=== PATIENT | male | born 1970 | race Asian ===

== ENCOUNTER 2025-05-25 09:03 | Observation (INO) | payer OTHER, SELFPAY ==
[2025-05-25] VITALS (13 sets, daily range): BP systolic 139–178; BP diastolic 77–113; PULSE 60–94; RESP 14–22; TEMP 35.9–36.7; O2SAT 95–100; BMI 28.0
--- NOTE | ~2025-05-25 | CT_ITS ---
EXAM: CTA brain carotid - 05/25/2025 11:40 CDT History: 54 years old Male with dizziness TECHNIQUE: CTA of the head and neck with intravenous contrast was performed. 3-D reconstructed image s of cerebral artery circulation were generated on a [employer] workstation. Automatic exposure contro l was used for this study. CONTRAST: 100 cc of Omnipaque 350 was used for this study COMPARISON: None available. FINDINGS: Normal branching pattern of the thoracic aorta. Great vessels of the neck are patent. RIGHT ANTERIOR CIRCULATION: Innominate and right common carotid artery is normal in caliber. No significant stenosis at the carotid bifurcation by NASCET criteria. Cervical segment of the internal carotid artery is normal in caliber. Cavernous and supraclinoid segm ents of the internal carotid artery patent. M1 segment and middle cerebral artery bifurcation are unremarkable. A1 segment, anterior communicating artery complex and A2 segment are within normal limits. LEFT ANTERIOR CIRCULATION: Left common carotid artery is normal in caliber. No significant stenosis at the carotid bifurcation by NASCET criteria. Cervical segment of the internal carotid artery is normal in caliber. Cavernous and supraclinoid segm ents of the internal carotid artery patent. M1 segment and middle cerebral artery bifurcation are unremarkable. A1 segment, anterior communicating artery complex and A2 segment are within normal limits. POSTERIOR CIRCULATION: Vertebral arteries are codominant and patent throughout the neck. Intradural vertebral arteries are normal in caliber and terminate as the basilar artery. Basilar artery is normal in caliber. Right P1 segment is hypoplastic, with persistent origin of the right posterior cerebral artery from right posterior communicating artery. Left P1 and P2 segments are within normal limits. OTHER: Multilevel degenerative changes of the visualized cervical spine. Visualized lungs are clear. IMPRESSION: Unremarkable CTA of the head and neck. No evidence of cerebral artery aneurysm, stenosis or mass. *REFERENCES: NASCET CRITERIA: The degree of internal carotid artery (ICA) stenosis is based on NASCET criteria. No rmal is no stenosis. Mild is less than 50% stenosis. Moderate is 50-69% stenosis. Severe is 70-99% st enosis. Total occlusion is no detectable patent lumen. Reviewed, dictated and finalized at location A. IMPRESSION: Unremarkable CTA of the head and neck. No evidence of cerebral artery aneurysm , stenosis or mass. *REFERENCES: NASCET CRITERIA: The degree of internal carotid artery (ICA) stenosis is based on NASCET criteria. Normal is no stenosis. Mild is less than 50% stenosis. Mode rate is 50-69% stenosis. Severe is 70-99% stenosis. Total occlusion is no detec table patent lumen.
--- NOTE | ~2025-05-25 | MR_ITS ---
EXAMINATION: MR brain/brain stem wo/w con DATE: 05/26/2025 11:20 INDICATION: Dizziness TECHNIQUE: Magnetic resonance imaging (MRI) of the brain and brainstem was performed without and with 16 mL Multihance Intravenous contrast. Sequences included sagittal and axial T1-weighted SE, axial d iffusion-weighted FS SE, axial 3D SWAN, axial T2-weighted FLAIR, and axial T2-weighted FSE. Postcontr ast axial and coronal T1-weighted SE was obtained. Apparent diffusion coefficient (ADC) maps were cre ated. COMPARISON: Head CT and CT angiogram dated 05/25/2025 FINDINGS: There are no areas of restricted diffusion to suggest acute infarction. No intracranial hemorrhage or abnormal intracranial mass lesion. A couple small foci of nonspecific increased T2-weighted signal i ntensity in the right frontal lobe white matter and right basal ganglia which is within normal limits for age and most typically sequela of chronic small vessel ischemic disease. There are no intraparen chymal signal abnormalities seen on the other pulse sequences. The ventricles are symmetric and carolina l in size. There are no abnormal extra-axial fluid collections. Flow voids are seen in the cerebral a rteries on the T2-weighted sequences consistent with their expected patency. There are bilateral high riding jugular bulbs with the cephalad margin on prior CT extending cephalad to the round windows to the level of the midpoint of the cochlea and windows on both the left and right. Visualized orbits a nd soft tissues are unremarkable. There are no areas of abnormal enhancement on the post contrast ratna ges. IMPRESSION: 1. Normal for age brain. No acute intracranial process or abnormally enhancing brain lesions. 2. Bilateral high riding jugular bulbs which can predispose towards vertigo and dizziness. Reviewed, dictated and finalized at location A.
--- NOTE | ~2025-05-25 | CT_ITS ---
EXAM: CT brain wo con - 05/25/2025 10:02 CDT History: 54 years old Male with dizziness COMPARISON: None available. PROCEDURE: CT of the head without contrast. Axial, sagittal and coronal reformatted planes were lelo luated. Automatic exposure control was used for this study. FINDINGS: BRAIN PARENCHYMA: No acute hemorrhage. No mass effect or herniation. Maldonado-white matter differentiatio n is maintained. Normal appearance of cortex. VENTRICLES/ EXTRA-AXIAL SPACES: No hydrocephalus or extra-axial fluid collection. EXTRACRANIAL STRUCTURES: No calvarial fracture. IMPRESSION: No evidence for acute intracranial hemorrhage or calvarial fracture. Reviewed, dictated and finalized at location A.
--- OUTSIDE RECORDS SUMMARY | 2025-05-25 09:35 | XMS_ITS | Clinical Summary ---
Author Organization [facility] Address [address] [place] [address] Care Team Providers Care Practice Performance Manager Name Role Phone Kishore Whitley MD Primary Care Prov ider Allergies No known active allergies Medications allopurinoL (ZYLOPRIM) 300 mg tablet TK 1 T PO D 01/15/2020 Active metFORMIN (GLUCOPHAGE) 500 mg tablet Take 1 tablet (500 mg total) by mouth 2 (two) times a day with meals 180 tablet 3 02/25/2024 Active fenofibrate (TRIGLIDE) 160 mg tabletIndication s:Type 2 diabetes mellitus with hyperglycemia, without long-term current use of insulin (HCC) Take 1 tablet by mouth once daily 90 tablet 11/02/2024 Active pravastatin (PRAVACHOL) 80 mg tabletIndication s:Type 2 diabetes mellitus with hyperglycemia, without long-term current use of insulin (HCC) Take 1 tablet by mouth once daily 90 tablet 11/02/2024 Active Active Problems Problem Noted Date Diagnosed Date Mixed hyperlipidemia due to type 2 diabetes nikkie itus 02/25/2024 Assessment & Plan (02/25/2024 3:01 PM CDT): Chronic, probably uncontrolled off of the medication for tomorrow Importance of low fat low carb diet and exercise to lower triglycerides was discussed Restart fenofibrate and pravastatin Update TFTs in 2 months Type 2 diabetes mellitus wit h hyperglycemia, without long-term current use of insulin 08/27/2023 Assessment & Plan (02/25/2024 3:00 PM CDT): Chronic, stable Continue metformin 500 mg twice a day Patient advised to have an eye exam done Assessment & Plan (08/27/2023 4:29 PM CDT): Diagnosed in February/2023 with fasting hyperglycemia and A1c of 7.1% Responding to Metformin A1c 6.7% on 08/27/23 Plan: Continue diet plan Continue Metformin Mixed hyperlipidemia 08/16/2017 Assessment & Plan (08/27/2023 4:28 PM CDT): under control with diet and medication Labs on 02/18/23 Cholesterol 185, triglycerides 209, LDL 111, HDL 37 Normal liver panel. Plan: Patient to watch diet- avoid fried foods, cut down on red meat. Increase Exercise. He will see a new Graphic Design Specialist in [place] Immunizations Immunization Administration Dates Next Due Flucelvax Influenza Quad 08/26/2017 Influenza, Quadrivalent, Josie l Culture-based MDCK, Antibiotic Free, Intramuscular 10/13/2018 Influenza, Quadrivalent, Split, Intramuscular Influenza, Quadrivalent, Spl it, Preservative Free, Intramuscular 10/09/2019 Medical History Medical History Date Comments High cholesterol Diabetes (HCC) Family History Medical History Relation Name Comments Diabetes Father Relation Name Status Comments Father Social History Tobacco Use Types Packs/Day Years Used Date Smoking Tobacco: Never Smokeless Tobacco: Never Tobacco Cessation:Counseling Given: Not Answered Personal Safety Answer Date Recorded Getting School Help Needed Not on file 10/28 Sex and Gender Information Value Date Recorded Sex Assigned at Not on file 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 Gender Identity Not on file Sexual Orientation Not on file Obstetrics History Last Filed Vital Signs Vital Sign Reading Time Taken Comments Blood Pressure 130/70 02/25/2024 2:21 PM CDT Pulse 94 02/25/2024 2:21 PM CDT Temperature 36.8 C (98.3 F) 06/22/2015 1:38 PM CDT Respiratory Rate 18 02/25/2024 2:21 PM CDT Oxygen Saturation 98% 06/22/2015 1:38 PM CDT Inhaled Oxygen Concentration - - Weight 82.6 kg (182 lb 1.6 oz) 02/25/2024 2:21 P M CDT Height 167.6 cm (5' 6) 02/25/2024 2:21 PM CDT Body Mass Index 29.39 02/25/2024 2:21 PM CDT Plan of Treatment Health Maintenance Due Date Last Done Comments Colon Cancer Screening-Colonoscopy 1968 Hepatitis C Screening 1968 Prostate Cancer Screening-PSA 1968 Dilated Eye Exam 1968 Foot Exam 1968 DTaP/Tdap/Td Vaccine (1 - Tdap) 1979 Hepatitis B Screening 1986 Regular Well Visit/Exam 18-64 1986 Pneumococcal vaccine <65 (1 of 2 - PCV) 1987 Depression Screening 08/16/2018 08/16/2017 Zoster Vaccine (1 of 2) 2018 Hemoglobin A1C 08/26/2024 02/25/2024, 08/18, 03/04/2023 Albumin Creatinine Ratio, Urine 04/27/2025 Lipid Panel 04/27/2025 04/27/2024, 04/0 01/2023, 01/26/2022, Additional history exists eGFR 04/27/2025 04/27/2024, 04/0 01/2023, 01/26/2021, Additional history exists Influenza Vaccine (Season Ended) 2025 10/09/2019, 10/09/2019, 10/13/2018, Additional history exists Procedures Procedure Name Priority Date/Time Associated Diagnosis Comments COMPREHENSIVE METABOLIC PANEL Routine 04/27/2024 7:40 AM CDT Type 2 diabetes mellitus with hyperglycemia, without long-term current use of insulin (HCC) LIPID PANEL Routine 04/27/2024 7:40 AM CDT Mixed hyperlipidemia due to type 2 diabetes mellitus (HCC) ALBUMIN CREATININE RATIO, URINE Routine 04/27/2024 7:40 AM CDT Type 2 diabetes mellitus with hyperglycemia, without long-term current use of insulin (HCC) POCT HEMOGLOBIN A1C Routine 02/25/2024 2 :21 PM CDT Type 2 diabetes mellitus with hyperglycemia, without long-term current use of insulin (HCC) from Last 3 Months or Most Recently Relevant to Health Maintenance Results * (ABNORMAL) Albumin Creatinine Ratio, Urine (04/27/2024 7:40 AM CDT) Creatinine ur 33.8 Not Estab. mg/dL [facility] - 01 Microalbumin, ur 27.9 Not Estab. ug/mL [facility] - 01 Microalbumin/cre at ratio 83(H) 0 - 29 mg/g creat [facility] - 01 Comment: Normal: 0 - 29 Moderately increased: 30 - 300 Severely increased: >300 Urine 04/27/2024 7:40 AM CDT 04/27/2024 Narrative [facility] - 04/28/2024 9:13 AM CDT Performed at: [address] [id number] Professor Of Art: Salvador Michelle PhD, Phone: [phone] us Lani Bee MD LAB URINE ORDERABLES [facility] - 01 * (ABNORMAL) Lipid panel (04/27/2024 7:40 AM CDT) Cholesterol 204(H) 100 - 199 mg/dL [facility] - 01 Triglycerides 166(H) 0 - 149 mg/dL [facility] - 01 HDL Cholesterol 40 >39 mg/dL [facility] - 01 VLDL 30 5 - 40 mg/dL [facility] - 01 LDL, calculated 134(H) 0 - 99 mg/dL [facility] - 01 LDL Calc Comment: CANCELED [facility] - 01 Comment: Test not performed Result canceled by the ancillary. Blood 04/27/2024 7:40 AM CDT 04/27/2024 Narrative [facility] - 04/28/2024 9:13 AM CDT Performed at: [address] [id number] Professor Of Art: Salvador Michelle PhD, Phone: [phone] Lani Bee MD LAB BLOOD ORDERABLES Edited Resu lt - Final [facility] - 01 * (ABNORMAL) Comprehensive metabolic panel (04/27/2024 7:40 AM CDT) [facility] Glucose 118(H) 70 - 99 mg/dL [facility] - 01 BUN 18 6 - 24 mg/dL [facility] - 01 Creatinine, Serum 0.81 0.76 - 1.27 mg/dL [facility] - 01 eGFR 104 >59 mL/min/1.7 3 [facility] - 01 BUN/creat ratio 22(H) 9 - 20 [facility] - 01 Sodium 137 134 - 144 mmol/L [facility] - 01 Potassium, sr 4.6 3.5 - 5.2 mmol/L [facility] - 01 Chloride 101 96 - 106 mmol/L [facility] - 01 CO2 22 20 - 29 mmol/L [facility] - 01 Calcium 9.9 8.7 - 10.2 mg/dL [facility] - 01 Protein, sr 7.7 6.0 - 8.5 g/dL [facility] - 01 Albumin 4.6 3.8 - 4.9 g/dL [facility] - 01 Globulin, Total 3.1 1.5 - 4.5 g/dL [facility] - 01 A/G Ratio 1.5 [facility] - 01 Bilirubin, Total 0.3 0.0 - 1.2 mg/dL [facility] - 01 Alk phos 66 44 - 121 IU/L [facility] - 01 AST 19 0 - 40 IU/L [facility] - 01 ALT 22 0 - 44 IU/L [facility] - 01 Blood 04/27/2024 7:40 AM CDT 04/27/2024 Narrative [facility] - 04/28/2024 9:13 AM CDT Performed at: [address] [place] [id number] Professor Of Art: Salvador Michelle PhD, Phone: [phone] us Lani Bee MD LAB BLOOD ORDERABLES Final Resul t [facility] - 01 * (ABNORMAL) POCT hemoglobin A1c (02/25/2024 2:21 PM CDT) Hemoglobin A1C, POC 6.7 % Blood spot 02/25/2024 2:21 PM CDT Lani Bee MD POINT OF CARE TEST ORDERABLES Fi nal Result from Last 3 Months or Most Recently Relevant to Health Maintenance Insurance [facility] Care Teams Practice Performance Manager Relationship Specialty Start Date End Date Kishore Whitley MD [address] [place] [address] PCP - General Family Medicine 02/11/18
[2025-05-25 09:36] LABS: Hematocrit 46.0 % (42.0-52.0); Hemoglobin 15.0 g/dL (14.0-18.0); Immature Granulocyte Percent A 1.4 % (0-0.5); Lymphocytes Absolute Auto 3.34 K/mm3 (0.9-3.2); Mean Corpuscular HGB Conc 32.6 g/dl (32-36); Mean Corpuscular Hemoglobin 26.0 pg (26-34); Mean Corpuscular Volume 79.9 fl (80-100); Nucleated Red Blood Cells Absolute Auto 0.000 K/mm3 (0.0-0.012); Nucleated Red Blood Cells Perc 0.0 % (0.0-0.2); Platelet Count Result 242 k/mm3 (150-375); Red Blood Count 5.76 M/mm3 (4.6-6.20); White Blood Count 9.6 K/mm3 (4.5-10.0)
--- OUTSIDE RECORDS SUMMARY | 2025-05-25 09:36 | XMS_ITS | Referral Summary ---
Author Organization [facility] Medical Office Building B Address [address] [place] [address] Care Team Providers Care Relay Associate Name Role Phone Kishore Whitley MD Primary [...] Increase Exercise. He will see a new Gamma Operator in [place] Immunizations Immunization Administration Dates Next Due Flucelvax Influenza Quad 08/26/2017 Influenza, Quadrivalent, Josie l Culture-based MDCK, Antibiotic Free, Intramuscular 10/13/2018 Influenza, Quadrivalent, Split, Intramuscular Influenza, Quadrivalent, Spl it, Preservative Free, Intramuscular 10/09/2019 Social History Tobacco Use Types Packs/Day Years Used Date Smoking Tobacco: Never Smokeless Tobacco: Never Tobacco Cessation:Counseling Given: Not Answered Personal Safety Answer Date Recorded Getting School Help Needed Not on file 10/28 Sex and Gender Information Value Date Recorded Sex Assigned at Not on file 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[employer] Gender Identity Not on file Sexual Orientation Not on file Last Filed Vital Signs Vital Sign Reading [...] 02/25/2024 2:21 PM CDT Plan of Treatment Not on file Procedures Procedure Name Priority Date/Time Associated Diagnosis [...] - 04/28/2024 9:13 AM CDT Performed at: 01 - [address] [id number] [address] Judge: Salvador Michelle PhD, Phone: [phone] us Lani Bee MD LAB URINE ORDERABLES Final Resul t [facility] - 01 * (ABNORMAL) Lipid panel [...] - 04/28/2024 9:13 AM CDT Performed at: 01 - [address] [id number] [address] Judge: Salvador Michelle PhD, Phone: [phone] us Lani Bee MD LAB BLOOD ORDERABLES Edited Resu lt - Final [facility] - 01 * (ABNORMAL) Comprehensive metabolic panel (04/27/2024 7:40 AM CDT) Glucose 118(H) 70 - 99 mg/dL [facility] [...] - 04/28/2024 9:13 AM CDT Performed at: [facility] [id number] [address] Judge: Salvador Michelle PhD, Phone: [phone] us Lani Bee MD LAB BLOOD ORDERABLES Final Resul t [facility] - 01 * (ABNORMAL) POCT hemoglobin A1c (02/25/2024 2:21 PM CDT) Hemoglobin A1C, POC 6.7 % Blood spot 02/25/2024 2:21 PM CDT us Lani Bee MD POINT OF CARE TEST ORDERABLES Fi nal Result from Last 3 Months or Most Recently Relevant to Health Maintenance Insurance [facility] CHOICE PLUS [facility] HMO/PPO Address: [address] [address] [place] [address] [facility] Address: [address] [address] [place] [phone] Care Teams Relay Associate Relationship Specialty Start Date End Date Kishore Whitley MD [address] [place] [address] PCP - General Family Medicine 02/11/18
--- NOTE | 2025-05-25 09:42 | ED.NAVMDI ---
HPI - Nausea/Vomiting/Diarrhea General Chief complaint: Nausea/Vomiting/Diarrhea <Leny Starks PA-C - Last Filed: 05/27/25 17:48> Stated complaint: n/v <KIRILL Montenegro Last Filed: 05/27/25 17:48> Time Seen by Provider: 05/25/25 09:10 <Leny Starks PA-C - Last Filed: 05/27/25 17:48> Source: patient <Leny Rivera KIRILL Starks Last Filed: 05/27/25 17:48> Mode of arrival: EMS <KIRILL Montenegro Last Filed: 05/27/25 17:48> Limitations: no limitations <KIRILL Montenegro Last Filed: 05/27/25 17:48> History of Present Illness HPI Narrative: This is a 54 year old male that presents to the ER for nausea and vomiting. Reports history of DM. Reports an hour ago he had an episode of dizziness, nausea, vomiting. Worse with position changes. No previous history of vertigo. Denies fever, abdominal pain. <Leny Starks PA-C - Last Filed: 05/27/25 17:48> Related Data Allergies/Adverse reactions: Allergies Allergy/AdvReac Type Severity Reaction Status Date / Time No Known Allergies Allergy Verified 05/25/25 09:07 <Leny Starks PA-C - Last Filed: 05/27/25 17:48> Review of Systems Review of Systems: All systems reviewed & are unremarkable except as noted in HPI and below <KIRILL Montenegro Last Filed: 05/27/25 17:48> [facility] Past Medical History Medical History: Medical History Hypertension Gout Hyperlipidemia <KIRILL Montenegro Last Filed: 05/27/25 17:48> Social History Social History: Social History Smoking status: Never smoker Alcohol intake: current Drinks per week: 2 Substance use: never Substance use type: does not use Do You Feel Safe in your Home?: Yes Lack of Transportation: No Lack of Food: Never True Current Housing: I Have Housing Concerned About Future Housing: No Difficulty Paying Gas/Electric Bills: No Difficulty Paying for Meds: No Currently Unemployed: No Education: High School Diploma/GED Difficulty w/ Childcare or Family Care: No Living arrangements: with family Occupation/Education: occupation Gender identity (if verbalized by the patient): Male Spiritual care concerns: No <Leny Starks PA-C - Last Filed: 05/27/25 17:48> Exam Narrative: GENERAL: Well-appearing, well-nourished, and in no acute distress. HEAD: Normocephalic, atraumatic. EYES: PERRLA and EOMI. ENT: Nares clear, no rhinorrhea or epistaxis. Mucous membranes moist. Oropharynx without tonsillar hypertrophy exudate or other lesions. Bilateral TMs pearly rosenthal non-bulging NECK: Supple. No adenopathy or masses. CHEST: Clear to auscultation. No respiratory distress. No wheezes rales or rhonchi HEART: Regular rate and rhythm. No murmur heard. Normal peripheral pulses. ABDOMEN: Soft, nontender, nondistended, normal active bowel sounds. EXTREMITIES: Normal range of motion. No edema. SKIN: Warm, dry, no rash. NEURO: No focal deficits. Alert and oriented x3. CN II-XII grossly intact PSYCH: Normal mood and affect <Leny Starks PA-C - Last Filed: 05/27/25 17:48> Course Course Emergency Course: Patient updated on his workup. Continue dizziness after meclizine, Zofran, Valium, 2 L of IV fluids. Will consult for admission <Leny Starks PA-C - Last Filed: 05/27/25 17:48> LEGAL NURSE CONSULTANT/PA Physician Supervision For this patient encounter, I reviewed the LEGAL NURSE CONSULTANT or PA documentation, treatment plan, and medical decision making; and I had [id number] time with this patient. <Adams Rosa MD - Last Filed: 06/04/25 12:56> Consultations Consultation #1: Spoke with hospitalist about patient and workup who accepts admission <Leny Starks PA-C - Last Filed: 05/27/25 17:48> Vital Signs Vital signs: Vital Signs Pulse Rate 62 05/25/25 09:03 Respiratory Rate 18 05/25/25 09:03 Blood Pressure 147/94 H 05/25/25 09:03 Pulse Oximetry 100 05/25/25 09:03 Oxygen Delivery Room Air 05/25/25 09:03 Temperature 97.5 F L 05/27/25 08:09 Pulse Rate 77 05/27/25 12:00 Respiratory Rate 16 05/27/25 08:09 Blood Pressure 161/92 H 05/27/25 08:09 Pulse Oximetry 97 05/27/25 08:09 Oxygen Delivery Room Air 05/27/25 08:09 <Leny Starks PA-C - Last Filed: 05/27/25 17:48> Vital Signs Pulse Rate 62 05/25/25 09:03 Respiratory Rate 18 05/25/25 09:03 Blood Pressure 147/94 H 05/25/25 09:03 Pulse Oximetry 100 05/25/25 09:03 Oxygen Delivery Room Air 05/25/25 09:03 Temperature 97.5 F L 05/27/25 08:09 Pulse Rate 77 05/27/25 12:00 Respiratory Rate 16 05/27/25 08:09 Blood Pressure 161/92 H 05/27/25 08:09 Pulse Oximetry 97 05/27/25 08:09 Oxygen Delivery Room Air 05/27/25 08:09 <Adams Rosa MD - Last Filed: 06/04/25 12:56> MDM - Nausea/Vomiting/Diarrhea MDM Narrative Medical decision making narrative: Patient presents to the emergency department for dizziness. Ongoing over the last couple of hours. Reports associated nausea and vomiting. He is afebrile and nontoxic appearing. His vitals are stable. He is neurologically intact. Cbc metabolic panel without concerning findings. Urine without evidence of infection. CT brain without acute findings. CTA obtained for further evaluation, also without acute findings. Patient updated on his workup. Continue dizziness after meclizine, Zofran, Valium, 2 L of IV fluids. Will consult for admission. Spoke with hospitalist about patient and workup who accepts admission <Leny Starks PA-C - Last Filed: 05/27/25 17:48> Differential Diagnosis Differential diagnosis: Likely food poisoning, dehydration and other (vertigo, BPPV, CVA, TIA, electrolyte derangement) <Leny Starks PA-C - Last Filed: 05/27/25 17:48> Lab Data Attestation: I reviewed the patient's lab results. <Leny Starks PA-C - Last Filed: 05/27/25 17:48> Result diagrams: 05/27/25 06:05 05/27/25 06:05 <Leny Starks PA-C - Last Filed: 05/27/25 17:48> Labs: Lab Results 05/25/25 05/25/25 05/25/25 Range/Units 09:31 09:32 10:54 WBC 9.6 (4.5-10.0) K/mm3 RBC 5.76 (4.6-6.20) M/mm3 Hgb 15.0 (14.0-18.0) g/dL Hct 46.0 (42.0-52.0) % MCV 79.9 L (80-100) fl MCH 26.0 (26-34) pg MCHC 32.6 (32-36) g/dl RDW 14.6 H (11.5-14.5) % Plt Count 242 (150-375) k/mm3 MPV 10.9 H (7.4-10.4) fl Immature Gran % (Auto) 1.4 H (0-0.5) % Neut % (Auto) 54.3 (45.5-73.1) % Lymph % (Auto) 34.9 (18.3-44.2) % [place] % (Auto) 7.3 (2.6-8.5) % Eos % (Auto) 1.5 (0-4.4) % Baso % (Auto) 0.6 (0.2-1.2) % Lymph # (Auto) 3.34 H (0.9-3.2) K/mm3 [place] # (Auto) 0.7 H (0.1-0.6) K/mm3 Eos # (Auto) 0.1 (0-0.3) K/mm3 Baso # (Auto) 0.1 (0.0-0.1) K/mm3 Abs Immat Gran (auto) 0.13 H (0.00-0.031) K/mm3 Absolute Neuts (auto) 5.2 (1.3-6.7) K/mm3 Absolute Nucleated RBC 0.000 (0.0-0.012) K/mm3 Nucleated RBC % 0.0 (0.0-0.2) % Sodium 139 (137-145) mmol/L Potassium 3.6 (3.4-5.0) mmol/L Chloride 107 (98-107) mmol/L Carbon Dioxide 19 L (22-30) mmol/L Anion Gap 13 H (4-12) mmol/L BUN 12 (9-20) mg/dL Creatinine 0.65 L (0.7-1.3) mg/dL Estim Creat Clear Calc 119 ml/min Estimated GFR > 60 (59 - ) Glucose 181 H (65-110) mg/dL Calcium 9.5 (8.4-10.2) mg/dL Total Bilirubin 0.6 (0.2-1.3) mg/dL AST 40 (17-59) U/L ALT 60 H (6-50) U/L Alkaline Phosphatase 89 (38-126) U/L Total Protein 8.0 (6.3-8.2) g/dL Albumin 4.6 (3.5-5.1) g/dL Lipase 133 (23-300) U/L Urine Color Yellow (Yellow) Urine Appearance Clear (Clear) Urine pH 7.0 (5.0-9.0) Ur Specific [place] 1.013 (1.001-1.035) Urine Protein Trace (Negative) mg/dL Urine Glucose (UA) Trace H (Negative) mg/dL Urine Ketones Negative (Negative) mg/dL Ur Blood (Man) Negative (Negative) Urine Nitrate Negative (Negative) Urine Bilirubin Negative (Negative) Urine Urobilinogen 0.2 (<2.0) mg/dL Leukocyte Esterase Rfl Negative (Negative) GOLDY/UL Urine RBC 0-2 (0-2) /hpf Urine WBC 0-5 (0-3) /hpf Ur Squamous Epith Cells None seen (Few) /hpf Urine Bacteria None seen /hpf Urine Casts 0-2 <Leny Starks PA-C - Last Filed: 05/27/25 17:48> Lab Results 05/25/25 05/25/25 05/25/25 Range/Units 09:31 09:32 10:54 WBC 9.6 (4.5-10.0) K/mm3 RBC 5.76 (4.6-6.20) M/mm3 Hgb 15.0 (14.0-18.0) g/dL Hct 46.0 (42.0-52.0) % MCV 79.9 L (80-100) fl MCH 26.0 (26-34) pg MCHC 32.6 (32-36) g/dl RDW 14.6 H (11.5-14.5) % Plt Count 242 (150-375) k/mm3 MPV 10.9 H (7.4-10.4) fl Immature Gran % (Auto) 1.4 H (0-0.5) % Neut % (Auto) 54.3 (45.5-73.1) % Lymph % (Auto) 34.9 (18.3-44.2) % [place] % (Auto) 7.3 (2.6-8.5) % Eos % (Auto) 1.5 (0-4.4) % Baso % (Auto) 0.6 (0.2-1.2) % Lymph # (Auto) 3.34 H (0.9-3.2) K/mm3 [place] # (Auto) 0.7 H (0.1-0.6) K/mm3 Eos # (Auto) 0.1 (0-0.3) K/mm3 Baso # (Auto) 0.1 (0.0-0.1) K/mm3 Abs Immat Gran (auto) 0.13 H (0.00-0.031) K/mm3 Absolute Neuts (auto) 5.2 (1.3-6.7) K/mm3 Absolute Nucleated RBC 0.000 (0.0-0.012) K/mm3 Nucleated RBC % 0.0 (0.0-0.2) % Sodium 139 (137-145) mmol/L Potassium 3.6 (3.4-5.0) mmol/L Chloride 107 (98-107) mmol/L Carbon Dioxide 19 L (22-30) mmol/L Anion Gap 13 H (4-12) mmol/L BUN 12 (9-20) mg/dL Creatinine 0.65 L (0.7-1.3) mg/dL Estim Creat Clear Calc 119 ml/min Estimated GFR > 60 (59 - ) Glucose 181 H (65-110) mg/dL Calcium 9.5 (8.4-10.2) mg/dL Total Bilirubin 0.6 (0.2-1.3) mg/dL AST 40 (17-59) U/L ALT 60 H (6-50) U/L Alkaline Phosphatase 89 (38-126) U/L Total Protein 8.0 (6.3-8.2) g/dL Albumin 4.6 (3.5-5.1) g/dL Lipase 133 (23-300) U/L Urine Color Yellow (Yellow) Urine Appearance Clear (Clear) Urine pH 7.0 (5.0-9.0) Ur Specific [place] 1.013 (1.001-1.035) Urine Protein Trace (Negative) mg/dL Urine Glucose (UA) Trace H (Negative) mg/dL Urine Ketones Negative (Negative) mg/dL Ur Blood (Man) Negative (Negative) Urine Nitrate Negative (Negative) Urine Bilirubin Negative (Negative) Urine Urobilinogen 0.2 (<2.0) mg/dL Leukocyte Esterase Rfl Negative (Negative) GOLDY/UL Urine RBC 0-2 (0-2) /hpf Urine WBC 0-5 (0-3) /hpf Ur Squamous Epith Cells None seen (Few) /hpf Urine Bacteria None seen /hpf Urine Casts 0-2 <Adams Rosa MD - Last Filed: 06/04/25 12:56> Imaging Data Radiologist's impression: ITS Impressions Head CT 05/25/25 10:24 IMPRESSION: No evidence for acute intracranial hemorrhage or calvarial fracture. Head/Neck CTA 05/25/25 11:59 IMPRESSION: Unremarkable CTA of the head and neck. No evidence of cerebral artery aneurysm, stenosis or mass. *REFERENCES: NASCET CRITERIA: The degree of internal carotid artery (ICA) stenosis is based on NASCET criteria. Normal is no stenosis. Mild is less than 50% stenosis. Moderate is 50-69% stenosis. Severe is 70-99% stenosis. Total occlusion is no detectable patent lumen. <Leny Starks PA-C - Last Filed: 05/27/25 17:48> Critical Care Time Critical Care Time Critical Care Time: No <Leny Starks PA-C - Last Filed: 05/27/25 17:48> Discharge Plan Discharge Clinical Impression: Dizziness <Leny Starks PA-C - Last Filed: 05/27/25 17:48> Patient Disposition: Still a Patient <Leny Starks PA-C - Last Filed: 05/27/25 17:48> Condition: Stable <Leny Starks PA-C - Last Filed: 05/27/25 17:48>
[2025-05-25 09:48] LABS: Alanine Aminotransferase 60 U/L (6-50); Albumin Level 4.6 g/dL (3.5-5.1); Alkaline Phosphatase 89 U/L (38-126); Anion Gap 13 mmol/L (4-12); Aspartate Amino Transferase 40 U/L (17-59); Bilirubin,Total 0.6 mg/dL (0.2-1.3); Blood Urea Nitrogen 12 mg/dL (9-20); Calcium 9.5 mg/dL (8.4-10.2); Carbon Dioxide 19 mmol/L (22-30); Chloride 107 mmol/L (98-107); Estimated CRCL calculation 119 ml/min; Estimated Glomerular Filt Rate > 60; Glucose 181 mg/dL (65-110); Lipase 133 U/L (23-300); Potassium 3.6 mmol/L (3.4-5.0); Sodium 139 mmol/L (137-145); Total Protein 8.0 g/dL (6.3-8.2)
[2025-05-25] MEDS: MECLIZINE HCL 25 MG TABLET PO (09:50)
[2025-05-25] MEDS: ONDANSETRON INJ 4 MG/2 ML VIAL IV PUSH ×2 (09:50→20:25)
[2025-05-25] MEDS: SODIUM CHLORIDE 0.9% IV 1,000 ML 999 ML IV CONT ×2 (09:52→11:14)
[2025-05-25] MEDS: diazePAM INJ (*CRX) 10 MG/2 ML SYRINGE 5 MG IV PUSH (09:54)
--- NOTE | 2025-05-25 10:19 | ECG_ITS ---
Test Date: 2025-05-25 10:57:44 Measurements Intervals [place] Rate: 68 P: 63 AL: 189 QRS: 78 QRSD: 88 T: 106 QT: 421 QTc: 451 Interpretive Statements SINUS RHYTHM WITH SINUS ARRHYTHMIA NORMAL ELECTROCARDIOGRAM No previous ECG available for comparison Electronically Signed On 05-26-2025 07:31:16 CDT by Brady Combs M.D.
[2025-05-25 11:03] LABS: Add Urine Microscopic? YES; Appearance Urine Clear (Clear); Glucose Urine UA Trace mg/dL (Negative); Leukocyte Esterase Ur Negative LEU/UL (Negative); Nitrate Urine Negative (Negative); Non Pathogenic Casts 0-2; Specific Grav Ur 1.013 (1.001-1.035)
--- NOTE | 2025-05-25 11:12 | PC.NURSE ---
MARIO Starks notified of rectal temp of 96.6. Warm blankets placed on pt. New orders received.
[2025-05-25] MEDS: PROCHLORPERAZINE EDISYLATE 10 MG/2 ML VIAL IV PUSH (12:07)
--- NOTE | 2025-05-25 14:06 | PC.NURSE ---
PA student at bedside attempting jorgito maneuver.
--- NOTE | 2025-05-25 14:19 | PC.NURSE ---
MAROI Starks notified of pt. axillary temp of 96.8. Pt. continues to have warm blankets on him. Pt. remains diaphoretic and dizzy.
--- NOTE | 2025-05-25 14:50 | PM.IMHP ---
H&P: HPI History of Present Illness Date/Time: 05/25/25 14:50 Chief Complaint: Nausea, Vomiting, Dizziness Narrative: 54 y/o M with PMH of hypertension, diabetes, gout and HLD presents here with nausea, vomiting, and dizziness. The patient presents here from home via EMS for further evaluation of nausea, vomiting, and dizziness. He reports acute onset at 7:30 a.m. this morning. Last known well at 6 a.m. on 05/25. He describes the dizziness as he is off balance and leaning to the left, worsens with position changes/quick turns. He denies a previously known history of vertigo. He denies any associated focal weakness, focal nubmness, changes in vision, headache, dysphagia, dysarthria. He was given diazepam, meclizine, Compazine, and Zofran without relief In the ED. Unable to tolerate the Kenzie maneuver due to the severity of the dizziness. Initial VS at presentation: 96.6? F, HR 62, R 18, 147/94, and 100% on RA. ED workup showed: No leukocytosis, no anemia, creatinine 0.65 and GFR >60, glucose 181, UA showed trace glucose otherwise unremarkable. Head CT showed no evidence of acute intracranial hemorrhage or calvarial fracture. Head/neck CTA was unremarkable and showed no evidence of cerebral artery aneurysm, stenosis, or mass. Review of Systems Review of Systems: All systems reviewed & are unremarkable except as noted in HPI and below [facility] Past Medical History Medical History Hypertension Gout Hyperlipidemia Social History Social History Smoking status: Never smoker Alcohol intake: current Drinks per week: 2 Substance use: never Substance use type: does not use Do You Feel Safe in your Home?: Yes Lack of Transportation: No Lack of Food: Never True Current Housing: I Have Housing Concerned About Future Housing: No Difficulty Paying Gas/Electric Bills: No Difficulty Paying for Meds: No Currently Unemployed: No Education: High School Diploma/GED Difficulty w/ Childcare or Family Care: No Living arrangements: with family Occupation/Education: occupation Gender identity (if verbalized by the patient): Male Spiritual care concerns: No Meds Home Medications and Allergies Home Medications ?Medication ?Instructions ?Recorded ?Confirmed ?Type atorvastatin 40 mg tablet (Lipitor) 40 mg PO QHS #90 tabs 04/05/25 05/25/25 Rx losartan 50 mg tablet 50 mg PO DAILY #90 tabs 04/05/25 05/25/25 Rx metformin 500 mg tablet 500 mg PO BID #90 tabs 04/05/25 05/25/25 Rx Allergies Allergy/AdvReac Type Severity Reaction Status Date / Time No Known Allergies Allergy Verified 05/25/25 09:07 Vital Signs Vital Signs - 24 hr 05/25/25 09:03 05/25/25 10:38 05/25/25 11:05 Temperature 96.6 F L Pulse Rate 62 64 60 Respiratory Rate 18 20 20 Blood Pressure 147/94 H 140/94 H 158/113 H Pulse Oximetry 100 99 100 Oxygen Delivery Room Air 05/25/25 12:05 05/25/25 13:05 05/25/25 14:07 Temperature 96.8 F L Pulse Rate 74 86 94 Respiratory Rate 14 16 22 H Blood Pressure 178/95 H 151/104 H 177/101 H Pulse Oximetry 100 100 100 Oxygen Delivery 05/25/25 14:08 05/25/25 14:10 05/25/25 14:13 Temperature Pulse Rate 85 77 87 Respiratory Rate Blood Pressure 160/101 H 161/96 H 162/106 H Pulse Oximetry Oxygen Delivery Exam Const: Other: Nontoxic appearance, comfortable, no acute distress, male HENMT: Face/Nose/Sinus: Normal nares present Mouth: Yes moist mucous membranes Eyes: General: appearance normal, both eyes and all related structures Sclera: sclerae normal Pupils: Equal, round and reactive pupils present EOM: EOMs intact bilaterally Resp: Effort & Inspection: normal respiratory effort Auscultation: clear to auscultation bilaterally Cardio: Rate: regular rate Rhythm: regular rhythm Other: S1-S2 present without murmur, rub, ectopy GI: Other: Abdomen soft, nondistended, nontender. Normoactive bowel sounds in all quadrants. Skin: General skin exam: normal color and no rashes or lesions noted Wounds: no wounds Neuro: Speech: normal speech Motor exam (neuro): 5/5 motor strength present throughout Sensory Exam: normal sensation Other: +5 in all. no gaze palsy. horizontal nystagmus noted with rightward gaze. no dysarthria or facial droop. imbalance noted with ambulation. Extrem: General: normal to inspection Psych: Mental Status: mental status grossly normal Affect: normal affect Other: Good insight and judgment, pleasant H&P: Results Labs Labs: Short CBC 05/25/25 Range/Units 09:31 WBC 9.6 (4.5-10.0) K/mm3 Hgb 15.0 (14.0-18.0) g/dL Hct 46.0 (42.0-52.0) % Plt Count 242 (150-375) k/mm3 BMP 05/25/25 09:32 Sodium 139 Potassium 3.6 Chloride 107 Carbon Dioxide 19 L BUN 12 Creatinine 0.65 L Glucose 181 H Calcium 9.5 Liver Function 05/25/25 Range/Units 09:32 Total Bilirubin 0.6 (0.2-1.3) mg/dL AST 40 (17-59) U/L ALT 60 H (6-50) U/L Alkaline Phosphatase 89 (38-126) U/L Albumin 4.6 (3.5-5.1) g/dL Urine 05/25/25 Range/Units 10:54 Urine Color Yellow (Yellow) Urine Appearance Clear (Clear) Urine pH 7.0 (5.0-9.0) Ur Specific [place] 1.013 (1.001-1.035) Urine Protein Trace (Negative) mg/dL Urine Glucose (UA) Trace H (Negative) mg/dL Assessment and Plan Assessment and plan (1) Dizziness: Code(s): R42 - Dizziness and giddiness Status: Acute Assessment and Plan: - dizziness with no change with Valium, meclizine, Compazine, or IV fluids. Abrupt onset at 7:30 a.m. on 05/25, last known well at 6:00 a.m. today on 05/25 care - brain MRI, depending results consider consultation to neurology - fall precautions - did not tolerate Kenzie maneuver - meclizine p.r.n. - head CT and head/neck CTA negative (2) Diabetes type 2, controlled: Code(s): E11.9 - Type 2 diabetes mellitus without complications Status: Acute Assessment and Plan: - hypoglycemia protocol - POC blood glucose ACHS - home medication: hold metformin in case of need for contrast - correct regimen ordered - moderate dose TIDWM - A1C 6.3% on 04/05/2025 (3) Hypertension: Qualifiers: Hypertension type: primary hypertension Qualified Code(s): I10 - Essential (primary) hypertension Code(s): I10 - Essential (primary) hypertension Status: Acute Assessment and Plan: - chronic, currently 167/93 - continue home medications: losartan - monitor Plan Diet: diabetic GI Prophylaxis: NA DVT Prophylaxis: SCDs IV fluids: 2L Lines/Tubes: peripheral IV Code Status: full code Quality VTE Prophylaxis VTE prophylaxis: mechanical ordered Hospitalist MIPS Advance Care Plan I have confirmed that the patient's Advanced Care Plan is present, code status is documented, or surrogate decision maker is listed in patient medical record.: Yes Medication Reconciliation I have utilized all available resources to obtain, update and review the patients current medications (includes all prescriptions, OTC, herbals, cannabis, and nutritional supplements).: Yes
--- NOTE | 2025-05-25 15:22 | ADMGEN ---
This patient, Brian Cardoza, was admitted to Medical Room 245-. Patient/family oriented to hospital policies and general routines including ID bracelet, bed and alarms, visiting hours, pain management, procedures, bathroom and other care routines, personal items, smoking policy, room service/diet, and visiting hours. Information on how to activate the Rapid Response Team has been discussed. Patient/Family are encouraged to report perceived risks to care and to ask questions if they do not understand what they are told or what they should do.
[2025-05-25] MEDS: ATORVASTATIN 40 MG TABLET PO (20:24)
[2025-05-26] VITALS (8 sets, daily range): BP systolic 136–161; BP diastolic 78–93; PULSE 71–88; RESP 16–20; TEMP 36.2–36.6; O2SAT 95–100
--- NOTE | 2025-05-26 | ECHO_ITS ---
Patient Info Name: Brian Cardoza Age: 54 years : 1970 Gender: Male Ht: 66 in Wt: 173 lbs BSA: 1.93 m2 HR: 77 bpm BP: 141 / 86 mmHg Technical Quality: Good Exam Date: 05/26/2025 1:42 PM Patient Status: I Admit Date: 05/25/2025 Exam Type: CA echo doppler color flow Complete two-dimensional, color flow and Doppler transthoracic echocardiogram is performed. Staff Referring Physician: Melina Clinton First Assistant: Maryjane oHuston Attending Provider: Pradeep Bryant MD Summary 1. Complete two-dimensional, color flow and Doppler transthoracic echocardiogram is performed. 2. There is normal biventricular size and systolic function. 3. There are no significant valvular abnormalities. Left Ventricle The left ventricle is normal in size and systolic function. The left ventricular ejection fraction is visually estimated to be 65-70%. There is normal diastolic function. Right Ventricle The right ventricle is normal in size and systolic function. Left Atria The left atrium is normal size. Right Atria The right atrium is normal size. Atrial Septum The atrial septum is not well visualized. Aortic Valve The aortic valve is trileaflet and opens well. There is no aortic regurgitation. Pulmonic Valve The pulmonic valve is not well visualized. Mitral Valve The mitral valve is normal. There is trace mitral regurgitation. Tricuspid Valve The tricuspid valve is normal. There is trace tricuspid regurgitation. Pericardium/Pleural Prominent epicardial fat pad. Inferior Vena Cava Inferior vena cava is not well visualized. Aorta The aortic root at the level of the sinus of Valsalva measures 3.3 cm in diameter. Left Ventricular Outflow Tract Name Value Normal LVOT 2D LVOT Diameter 2.0 cm LVOT Doppler LVOT Peak Velocity 127 cm/s LVOT Peak Gradient 6 mmHg LVOT Mean Gradient 3 mmHg LVOT VTI 24 cm LVOT Stroke Volume 74 ml LVOT CO 5.7 l/min LVOT CI 3.0 l/min/m2 Mitral Valve Name Value Normal MV Diastolic Function MV E Peak Velocity 68 cm/s MV A Peak Velocity 77 cm/s MV E/A 0.9 MV Decel Time (PW) 190 ms MV Annular TDI MV E/e' (Septal) 10.0 MV E/e' (Lateral) 6.2 MV E/e' (Average) 8.1 Aortic Valve Name Value Normal AV Doppler AV Peak Velocity 145 cm/s AV Peak Gradient 8 mmHg AV Area (Cont Eq Hang) 2.7 cm2 AV DI (Hang) 0.87 AV Regurgitation 2D LVOT Area 3.1 cm2 Ventricles Name Value Normal LV Dimensions 2D/MM IVS Diastolic Thickness (2D) 0.9 cm 0.6-1.0 LVID Diastole (2D) 4.6 cm 4.2-5.8 LVIW Diastolic Thickness (2D) 1.1 cm 0.6-1.0 LVID Systole (2D) 2.9 cm 2.5-4.0 LVOT Diameter 2.0 cm LV Mass (2D Cubed) 154.74 g 88.00-224.00 LV Mass Index (2D Cubed) 80 g/m2 49-115 Relative Wall Thickness (2D) 0.45 <=0.42 LV Fractional Shortening/Ejection Fraction 2D/MM LV Fractional Shortening (2D) 36 % 25-43 LV EF (2D Teichholz) 66 % LV Diastolic Volume (4C MOD) 112 ml LV EF (4C MOD) 64 % LV Diastolic Volume (2C MOD) 68 ml LV EF (2C MOD) 48 % LV Diastolic Volume (BP MOD) 93 ml 62-150 LV Diastolic Volume Index (BP MOD) 48 ml/m2 34-74 LV Systolic Volume (BP MOD) 40 ml 21-61 LV Systolic Volume Index (BP MOD) 21 ml/m2 11-31 LV EF (BP MOD) 57 % 52-72 LV Diastolic Length (4C) 8.4 cm LV Systolic Length (4C) 7.5 cm LV Stroke Volume (4C MOD) 72 ml RV Dimensions 2D/MM TAPSE 2.1 cm >=1.7 Atria Name Value Normal LA Dimensions LA Volume (4C A-L) 43 ml LA Volume (BP A-L) 35 ml RA Dimensions RA Systolic Major Rhine Length (4C) 5.7 cm 2.1-2.7 RA Area (4C) 14.2 cm2 <=18.0 Report Signatures
[2025-05-26] MEDS: MECLIZINE HCL 25 MG TABLET PO (05:44)
--- NOTE | 2025-05-26 07:12 | P.PNIM_ITS ---
Progress Note: A&P Assessment and Plan (1) Dizziness: Code(s): R42 - Dizziness and giddiness Status: Acute Assessment and Plan: Dizziness with abrupt onset at 7:30 a.m. on 05/25, last known well at 6:00 a.m. Feels off balance and leaning to left, worsens with position changes. No change with Valium, meclizine, Compazine, or IV fluids. - head CT and head/neck CTA negative - brain MRI showed normal aging brain with no acute intracranial process. Bilateral high riding jugular bulbs which can predispose to vertigo and dizziness. will need ENT and vascular follow up outpatient if wishes to pursue treatment - echo ordered - fall precautions - did not tolerate Kenzie maneuver - meclizine p.r.n. Discussed MRI findings with neurology Dr. Villafuerte and no acute intervention required at this time as dizziness has significantly improved. Will require ENT and vascular follow up for the high riding jugular bulbs. (2) Diabetes type 2, controlled: Code(s): E11.9 - Type 2 diabetes mellitus without complications Status: Acute Assessment and Plan: - hypoglycemia protocol - POC blood glucose ACHS - home medication: hold metformin in case of need for contrast - correct regimen ordered - moderate dose TIDWM - A1C 6.3% on 04/05/2025 glucose well controlled. continue to monitor. (3) Hypertension: Qualifiers: Hypertension type: primary hypertension Qualified Code(s): I10 - Essential (primary) hypertension Code(s): I10 - Essential (primary) hypertension Status: Acute Assessment and Plan: - chronic - continue home medications: losartan 50 mg daily - monitor Time Spent With Patient Time with patient: 25 - 35 minutes Subjective Date/time seen: 05/26/25 07:12 Interval history: 54 year old male with past medical history of hypertension, diabetes, gout, and HLD presents to the hospital with nausea/vomiting and dizziness. Patient is pleasant lying comfortably in bed with family at bedside. He states that his dizziness has significantly improved since admission and has been able to ambulate to the restroom. He is unsure of the meclizine has been helping because he has not been moving much. Denies any chest pain, shortness a breath, palpitations, nausea/vomiting, abdominal pain, and ear pains/ringing. Review of Systems Review of Systems: All systems reviewed & are unremarkable except as noted in HPI and below Exam Narrative: AF HR 77 RR 18 SpO2 100 BP 141/86 General: male in no acute respiratory distress who is nontoxic appearing, lying semi recumbent in bed. HEENT: Normocephalic. Atraumatic. Extraocular movement intact. Sclera clear and anicteric. No facial asymmetry. Chest: Lungs are clear to auscultation bilaterally. No wheezes or crackles. CV: Heart was regular rate and rhythm. Abd: Abdomen was soft. Nontender. Nondistended. Positive bowel sounds. Ext: No clubbing, cyanosis, or edema. DP pulses bilaterally. Neuro: Patient is alert and oriented x4. Speech is clear. Objective Data Vital Signs Vital Signs: Vital Signs - 24 hr 05/25/25 09:03 05/25/25 10:38 05/25/25 11:05 Temperature 96.6 F L Pulse Rate 62 64 60 Respiratory Rate 18 20 20 Blood Pressure 147/94 H 140/94 H 158/113 H Pulse Oximetry 100 99 100 Oxygen Delivery Room Air 05/25/25 12:05 05/25/25 13:05 05/25/25 14:07 Temperature 96.8 F L Pulse Rate 74 86 94 Respiratory Rate 14 16 22 H Blood Pressure 178/95 H 151/104 H 177/101 H Pulse Oximetry 100 100 100 Oxygen Delivery 05/25/25 14:08 05/25/25 14:10 05/25/25 14:13 Temperature Pulse Rate 85 77 87 Respiratory Rate Blood Pressure 160/101 H 161/96 H 162/106 H Pulse Oximetry Oxygen Delivery 05/25/25 15:30 05/25/25 16:00 05/25/25 20:00 Temperature 97.7 F 98.0 F Pulse Rate 62 88 89 Respiratory Rate 18 20 Blood Pressure 155/77 H 167/93 H Pulse Oximetry 95 95 Oxygen Delivery 05/25/25 20:00 05/25/25 20:00 05/25/25 23:53 Temperature 98.1 F Pulse Rate 89 93 89 Respiratory Rate 16 16 Blood Pressure 139/83 Pulse Oximetry 98 98 Oxygen Delivery Room Air 05/26/25 00:00 05/26/25 04:00 05/26/25 05:48 Temperature 97.5 F L Pulse Rate 88 78 87 Respiratory Rate 20 Blood Pressure 147/89 H Pulse Oximetry 95 Oxygen Delivery Intake/Output Intake/Output: Intake & Output 05/23/25 05/24/25 05/25/25 05/26/25 23:59 23:59 23:59 23:59 Intake Total 2400 200 Output Total 400 Balance 2000 200 Meds/Results Medications: Active Medications Generic Name Dose Route Start Last Admin Trade Name Freq PRN Reason Stop Dose Admin Acetaminophen 650 mg 05/25/25 21:15 Acetaminophen 325 Mg Tablet PO Q6H PRN Mild Pain (1-3) or Fever Atorvastatin Calcium 40 mg 05/25/25 21:00 05/25/25 20:24 Atorvastatin 40 Mg Tablet PO 40 mg QHS ÓSCAR Administration Dextrose 12.5 gm 05/25/25 18:04 Dextrose 50% 25 Gm/50 Ml Syringe IV PUSH PRN PRN Hypoglycemia Protocol Docusate Sodium 100 mg 05/25/25 21:00 05/25/25 20:25 Docusate Sodium 100 Mg Capsule PO Not Given Q12HR ÓSCAR Glucagon 1 mg 05/25/25 18:04 Glucagon For Inj 1 Mg Vial IM PRN PRN Hypoglycemia Protocol Glucose 15 gm 05/25/25 18:04 Glucose Oral Gel 15 Gm Of Glucse In 37.5 Gm Tube PO PRN PRN Hypoglycemia Protocol Dextrose 1,000 mls @ 100 mls/hr 05/25/25 18:04 Dextrose 5% 1,000 Ml IVPB PRN PRN Hypoglycemia Protocol Insulin Aspart 3 - 6 units 05/26/25 08:00 Insulin Aspart (*Bkc) 100 Units/Ml SUB-Q TIDWM [facility] Protocol Losartan Potassium 50 mg 05/26/25 09:00 Losartan Potassium 50 Mg Tablet PO DAILY [facility] Meclizine HCl 25 mg 05/25/25 18:03 05/26/25 05:44 Meclizine Hcl 25 Mg Tablet PO 25 mg BID PRN Administration Dizziness Ondansetron HCl 4 mg 05/25/25 18:02 05/25/25 20:25 Ondansetron Inj 4 Mg/2 Ml Vial IV PUSH 4 mg Q4H PRN Administration Nausea And Vomiting Prochlorperazine Edisylate 10 mg 05/25/25 18:02 Prochlorperazine Edisylate 10 Mg/2 Ml Vial IM Q6H PRN Nausea And Vomiting Radiology Results: ITS Impressions Head CT 05/25/25 10:24 IMPRESSION: No evidence for acute intracranial hemorrhage or calvarial fracture. Head/Neck CTA 05/25/25 11:59 IMPRESSION: Unremarkable CTA of the head and neck. No evidence of cerebral artery aneurysm, stenosis or mass. *REFERENCES: NASCET CRITERIA: The degree of internal carotid artery (ICA) stenosis is based on NASCET criteria. Normal is no stenosis. Mild is less than 50% stenosis. Moderate is 50-69% stenosis. Severe is 70-99% stenosis. Total occlusion is no detectable patent lumen. Labs Labs: Laboratory Results - last 24 hr 05/25/25 05/25/25 05/25/25 09:31 09:32 10:54 WBC 9.6 RBC 5.76 Hgb 15.0 Hct 46.0 MCV 79.9 L MCH 26.0 MCHC 32.6 RDW 14.6 H Plt Count 242 MPV 10.9 H Immature Gran % (Auto) 1.4 H Neut % (Auto) 54.3 Lymph % (Auto) 34.9 Archer % (Auto) 7.3 Eos % (Auto) 1.5 Baso % (Auto) 0.6 Lymph # (Auto) 3.34 H Archer # (Auto) 0.7 H Eos # (Auto) 0.1 Baso # (Auto) 0.1 Abs Immat Gran (auto) 0.13 H Absolute Neuts (auto) 5.2 Absolute Nucleated RBC 0.000 Nucleated RBC % 0.0 Sodium 139 Potassium 3.6 Chloride 107 Carbon Dioxide 19 L Anion Gap 13 H BUN 12 Creatinine 0.65 L Estim Creat Clear Calc 119 Estimated GFR > 60 Glucose 181 H POC Capillary Glucose Calcium 9.5 Total Bilirubin 0.6 AST 40 ALT 60 H Alkaline Phosphatase 89 Total Protein 8.0 Albumin 4.6 Lipase 133 Urine Color Yellow Urine Appearance Clear Urine pH 7.0 Ur Specific [place] 1.013 Urine Protein Trace Urine Glucose (UA) Trace H Urine Ketones Negative Ur Blood (Man) Negative Urine Nitrate Negative Urine Bilirubin Negative Urine Urobilinogen 0.2 Leukocyte Esterase Rfl Negative Urine RBC 0-2 Urine WBC 0-5 Ur Squamous Epith Cells None seen Urine Bacteria None seen Urine Casts 0-2 05/25/25 05/25/25 05/26/25 17:20 20:15 05:39 WBC RBC Hgb Hct MCV MCH MCHC RDW Plt Count MPV Immature Gran % (Auto) Neut % (Auto) Lymph % (Auto) Archer % (Auto) Eos % (Auto) Baso % (Auto) Lymph # (Auto) Archer # (Auto) Eos # (Auto) Baso # (Auto) Abs Immat Gran (auto) Absolute Neuts (auto) Absolute Nucleated RBC Nucleated RBC % Sodium Potassium Chloride Carbon Dioxide Anion Gap BUN Creatinine Estim Creat Clear Calc Estimated GFR Glucose POC Capillary Glucose 156 H 151 H 117 H Calcium Total Bilirubin AST ALT Alkaline Phosphatase Total Protein Albumin Lipase Urine Color Urine Appearance Urine pH Ur Specific [place] Urine Protein Urine Glucose (UA) Urine Ketones Ur Blood (Man) Urine Nitrate Urine Bilirubin Urine Urobilinogen Leukocyte Esterase Rfl Urine RBC Urine WBC Ur Squamous Epith Cells Urine Bacteria Urine Casts Quality VTE Prophylaxis VTE prophylaxis: mechanical ordered
[2025-05-26 07:30] LABS: Hematocrit 46.2 % (42.0-52.0); Hemoglobin 15.2 g/dL (14.0-18.0); Mean Corpuscular HGB Conc 32.9 g/dl (32-36); Mean Corpuscular Hemoglobin 26.3 pg (26-34); Mean Corpuscular Volume 79.9 fl (80-100); Platelet Count Result 239 k/mm3 (150-375); Red Blood Count 5.78 M/mm3 (4.6-6.20); White Blood Count 11.0 K/mm3 (4.5-10.0)
[2025-05-26 07:49] LABS: Alanine Aminotransferase 66 U/L (6-50); Albumin Level 4.2 g/dL (3.5-5.1); Alkaline Phosphatase 61 U/L (38-126); Anion Gap 12 mmol/L (4-12); Aspartate Amino Transferase 46 U/L (17-59); Bilirubin,Total 0.7 mg/dL (0.2-1.3); Blood Urea Nitrogen 9 mg/dL (9-20); Calcium 9.5 mg/dL (8.4-10.2); Carbon Dioxide 22 mmol/L (22-30); Chloride 108 mmol/L (98-107); Estimated CRCL calculation 97 ml/min; Estimated Glomerular Filt Rate > 60; Glucose 127 mg/dL (65-110); Potassium 3.8 mmol/L (3.4-5.0); Sodium 142 mmol/L (137-145); Total Protein 7.5 g/dL (6.3-8.2)
[2025-05-26] MEDS: LOSARTAN POTASSIUM 50 MG TABLET PO (09:59)
[2025-05-26] MEDS: DOCUSATE SODIUM 100 MG CAPSULE PO (09:59)
[2025-05-26] MEDS: ATORVASTATIN 40 MG TABLET PO (21:39)
[2025-05-27] VITALS: PULSE 78
[2025-05-27 04:00] VITALS: PULSE 68
[2025-05-27 06:00] VITALS: BP 133/93; PULSE 74; RESP 20; TEMP 36.3; O2SAT 94
[2025-05-27 06:27] LABS: Hematocrit 45.7 % (42.0-52.0); Hemoglobin 14.7 g/dL (14.0-18.0); Mean Corpuscular HGB Conc 32.2 g/dl (32-36); Mean Corpuscular Hemoglobin 26.1 pg (26-34); Mean Corpuscular Volume 81.2 fl (80-100); Platelet Count Result 243 k/mm3 (150-375); Red Blood Count 5.63 M/mm3 (4.6-6.20); White Blood Count 8.2 K/mm3 (4.5-10.0)
[2025-05-27 07:15] LABS: Alanine Aminotransferase 103 U/L (6-50); Albumin Level 4.1 g/dL (3.5-5.1); Alkaline Phosphatase 70 U/L (38-126); Anion Gap 7 mmol/L (4-12); Aspartate Amino Transferase 67 U/L (17-59); Bilirubin,Total 0.5 mg/dL (0.2-1.3); Blood Urea Nitrogen 18 mg/dL (9-20); Calcium 9.0 mg/dL (8.4-10.2); Carbon Dioxide 25 mmol/L (22-30); Chloride 108 mmol/L (98-107); Estimated CRCL calculation 88 ml/min; Estimated Glomerular Filt Rate > 60; Glucose 126 mg/dL (65-110); Potassium 3.9 mmol/L (3.4-5.0); Sodium 140 mmol/L (137-145); Total Protein 7.0 g/dL (6.3-8.2)
[2025-05-27 08:09] VITALS: BP 161/92; PULSE 70; PULSE 73; RESP 16; TEMP 36.4; O2SAT 97
[2025-05-27] MEDS: LOSARTAN POTASSIUM 50 MG TABLET PO (08:09)
[2025-05-27 12:00] VITALS: PULSE 77
--- NOTE | 2025-05-27 12:27 | P.DS_ITS ---
DS: Admitting Diagnosis Discharge Date 05/27/2025 Admitting Diagnosis dizziness dm htn DS: Discharge Diagnosis Discharge Diagnosis (1) Dizziness: Code(s): R42 - Dizziness and giddiness Status: Acute (2) Diabetes type 2, controlled: Code(s): E11.9 - Type 2 diabetes mellitus without complications Status: Acute (3) Hypertension: Qualifiers: Hypertension type: primary hypertension Qualified Code(s): I10 - Essential (primary) hypertension Code(s): I10 - Essential (primary) hypertension Status: Acute DS: Summary Hospital Course Reason for hospitalization: dizziness dm htn Hospital Course: 54 year old male with past medical history of hypertension, diabetes, gout, and HLD presents to the hospital with nausea/vomiting and dizziness. No change with Valium, meclizine, Compazine, or IV fluids. Head CT and head/neck CTA negative. Echo showed LVEF 65-70% with normal diastolic function. Brain MRI showed normal aging brain with no acute intracranial process. Bilateral high riding jugular bulbs which can predispose to vertigo and dizziness. Discussed results with neurology Dr. Villafuerte and given that this is the patients first episode and the dizziness has subsided he can follow up with vascular in the outpatient setting. Discussed the MRI results with patient and family and that they can follow up with PCP in regards to vascular follow up if they wish. Patient states understanding. Patient has no complaints at time of discharge denying chest pain, shortness a breath, palpitations, nausea/vomiting, abdominal pain, dizziness/lightheadedness, and instability. Patient discharged home in a stable condition. He is to follow-up with his primary care provider in 1 week. Status at Discharge Functional status at discharge: independent ambulation Time Spent with Patient Time attestation: Total time spent providing and/or coordinating discharge services: Time spent: Greater than 30 minutes Exam Narrative: AF HR 73 RR 16 SpO2 97 BP 161/92 General: male in no acute respiratory distress who is nontoxic appearing, sitting up in bed. HEENT: Normocephalic. Atraumatic. Extraocular movement intact. Sclera clear and anicteric. No facial asymmetry. No nystagmus. Chest: Lungs are clear to auscultation bilaterally. No wheezes or crackles. CV: Heart was regular rate and rhythm. Abd: Abdomen was soft. Nontender. Nondistended. Positive bowel sounds. Ext: No clubbing, cyanosis, or edema. DP pulses bilaterally. Neuro: Patient is alert and oriented x4. Speech is clear. Strength is 5/5 in upper and lower extremities. DS: Data Data Completed and Pending Completed studies during hospitalization: head ct head/neck cta brain mri Labs on day of discharge: Labs from last 24 hours 05/27/25 05/27/25 05/27/25 11:55 07:42 06:05 WBC 8.2 RBC 5.63 Hgb 14.7 Hct 45.7 MCV 81.2 MCH 26.1 MCHC 32.2 RDW 14.7 H Plt Count 243 MPV 10.6 H Sodium 140 Potassium 3.9 Chloride 108 H Carbon Dioxide 25 Anion Gap 7 BUN 18 Creatinine 0.73 Estim Creat Clear Calc 88 Estimated GFR > 60 Glucose 126 H POC Capillary Glucose 95 113 H Calcium 9.0 Total Bilirubin 0.5 AST 67 H ALT 103 H Alkaline Phosphatase 70 Total Protein 7.0 Albumin 4.1 05/26/25 05/26/25 20:31 17:17 WBC RBC Hgb Hct MCV MCH MCHC RDW Plt Count MPV Sodium Potassium Chloride Carbon Dioxide Anion Gap BUN Creatinine Estim Creat Clear Calc Estimated GFR Glucose POC Capillary Glucose 142 H 113 H Calcium Total Bilirubin AST ALT Alkaline Phosphatase Total Protein Albumin Discharge Plan Discharge Attending physician on discharge: Tr Pimentel Discharging Clinician: Kassidy Martinez Anticipated Discharge Date/Time: 05/27/25 12:24 Patient Disposition: Home Activity: as tolerated Diet: as tolerated and diabetic Discharge Instructions: Discharge disposition: Patient admitted to the hospital for dizziness Brain MRI showed high riding jugular bulb which can predispose of vertigo and dizziness If dizziness continues follow-up with primary care for possible vascular follow- up in the outpatient setting Take medications as prescribed Started on meclizine as needed for dizziness Attached is information on this medication Monitor blood pressures Take caution while standing, rising, or moving Change positions slowly taking a break between each position change If you standing feel dizzy sit back down and take a break Encouraged to continue with yearly vaccinations Return to the emergency department if he developed sudden shortness of breath, chest pain, nausea, vomiting, upset stomach or intractable diarrhea Return to the emergency department if you develop fever greater than 101.5 Follow-up with the primary care physician within 1-2 weeks Thank you for choosing [facility] for your healthcare needs Patient Instructions: Meclizine (By mouth), Vertigo (DC) Patient Language: Indonesian Stand Alone Forms: General Discharge Information Follow-up/Referrals: Eduard Leo, [Primary Care Provider] - 1 Week Discharge Medications: New meclizine 25 mg Tablet 25 mg PO BID PRN (Reason: Dizziness) Qty: 20 0RF Continued metformin 500 mg tablet 500 mg PO BID Qty: 90 3RF losartan 50 mg tablet 50 mg PO DAILY Qty: 90 3RF atorvastatin [Lipitor] 40 mg tablet 40 mg PO QHS Qty: 90 3RF Date of admission: 05/25/25 14:16 Primary Care Provider: Eduard Leo Admitting Provider: Pradeep Bryant Attending physician on admission: Pradeep Bryant Condition: Stable Hospitalist MIPS Heart Failure (Exclusion) Patient has history of Heart Transplant or Left Ventricular Assistive Device?: No IF YES, STOP HERE Heart Failure (Qualifier) Patient has current or prior documentation of LVEF less than or equal to 40%, or mod/servere depressed LVSF?: No IF NO, STOP HERE
== END 2025-05-27 12:50 | disposition home or self-care (01) ==
LOC: ANHED 15:06 → ANH2MED 05-26 14:51
PROVIDERS: Student in an Organized Health Care Education/Training Program; Admitting Provider Internal Medicine; Emergency Provider Physician Assistant; PCP Family Medicine; Visit Provider Internal Medicine
DX: R42 Dizziness and giddiness (principal); E78.5 Hyperlipidemia, unspecified; M10.9 Gout, unspecified; I10 Essential (primary) hypertension; E11.9 Type 2 diabetes mellitus without complications
CPT/HCPCS: 36415; 70450; 70496; 70498; 70553; 80053; 81001; 82948; 83690; 85025; 85027; 93005; 93306; 96361; 96374; 96375; 96376; 99285; A9270; A9577; G0378; J0780; J2405; J3360; J7030; Q9967